=== PATIENT | male | born 1945 | race Caucasian/White ===

== ENCOUNTER 2024-07-15 16:10 | Inpatient (IN) | payer OTHER ==
[2024-07-15] MEDS ORDERED: ceFAZolin SODIUM 1 GM VIAL ONE (17:47)
[2024-07-15 17:54] LABS: BASO % 0.6 % (0-2.0); EOS % 1.6 % (0-4.5); HEMATOCRIT 35.5 % (35.4-49); HEMOGLOBIN 11.7 GM/dL (11.7-16.9); LYMPH % 12.8 % (8-40); MCH 28.2 pg (25.7-33.7); MEAN CELL VOLUME 85.6 fl (80-96); MONO % 10.3 % (3.8-10.2); NEUT % 74.7 % (42.8-82.8); PLATELET COUNT 398 10^3/uL (134-434); RBC 4.14 M/mm3 (4.00-5.60); RDW 14.5 % (11.9-15.9); WHITE BLOOD COUNT 8.1 K/mm3 (4.0-10.0)
[2024-07-15] MEDS: CEFAZOLIN 1 GM in DEXTROSE 5%-WATER - 50 ML IVPB ONE (17:57)
[2024-07-15 18:13] LABS: POTASSIUM 3.5 mmol/L (3.5-5.1)
[2024-07-15 18:14] LABS: CALCIUM 8.5 mg/dL (8.5-10.1)
[2024-07-15 18:15] LABS: ALBUMIN 2.5 g/dl (3.4-5.0); BLOOD UREA NITROGEN 12.8 mg/dL (7-18)
[2024-07-15 18:18] LABS: CREATININE 0.9 mg/dL (0.55-1.3)
[2024-07-15 18:20] LABS: BILIRUBIN,TOTAL 0.8 mg/dL (0.2-1); TOT PROT 6.3 g/dl (6.4-8.2)
[2024-07-16] MEDS ORDERED: DEXTROSE 5%-WATER 100 ML IVPB ONE (04:09)
[2024-07-16] MEDS ORDERED: CEFAZOLIN SODIUM 2 GM VIAL ONE (04:10)
[2024-07-16] MEDS ORDERED: FUROSEMIDE 40 MG/4 ML INJECTABLE VIAL ONE ×3 (04:10→19:16)
[2024-07-16] MEDS: CEFAZOLIN SODIUM 2 GM in DEXTROSE 5%-WATER 100 ML IVPB SCH (04:46)
[2024-07-16] MEDS: FUROSEMIDE 40 MG/4 ML INJECTABLE VIAL IVPUSH SCH (04:46)
[2024-07-16 07:49] LABS: HEMATOCRIT 35.1 % (35.4-49); HEMOGLOBIN 11.4 GM/dL (11.7-16.9); MCH 28.1 pg (25.7-33.7); MCHC 32.5 g/dl (32.0-35.9); MEAN CELL VOLUME 86.4 fl (80-96); PLATELET COUNT 383 10^3/uL (134-434); RBC 4.07 M/mm3 (4.00-5.60); RDW 14.1 % (11.9-15.9); WHITE BLOOD COUNT 7.1 K/mm3 (4.0-10.0)
[2024-07-16 08:13] LABS: POTASSIUM 3.7 mmol/L (3.5-5.1)
[2024-07-16 08:38] LABS: CALCIUM 8.4 mg/dL (8.5-10.1)
[2024-07-16 08:39] LABS: BLOOD UREA NITROGEN 13.4 mg/dL (7-18)
[2024-07-16 08:40] LABS: ALBUMIN 2.6 g/dl (3.4-5.0)
[2024-07-16 08:42] LABS: PHOSPHOROUS 3.1 mg/dL (2.5-4.9)
[2024-07-16 08:43] LABS: BILIRUBIN,TOTAL 0.5 mg/dL (0.2-1); TOT PROT 6.3 g/dl (6.4-8.2)
[2024-07-16] MEDS ORDERED: ENOXAPARIN NA (PORCINE) 40 MG/0.4 ML DISP.SYRIN SQ ONE (10:09)
[2024-07-16] MEDS: ENOXAPARIN NA (PORCINE) 40 MG/0.4 ML DISP.SYRIN SQ SCH (10:13)
[2024-07-16] MEDS ORDERED: CEFTRIAXONE 2 GM/100 ML BAG IVPB ONE (13:47)
[2024-07-16] MEDS: CEFTRIAXONE 2 GM in DEXTROSE 5%-WATER 100 ML IVPB SCH (14:10)
[2024-07-16] MEDS ORDERED: VANCOMYCIN/WATER 1250 MG 1,250 MG/250 ML BAG IVPB ONE (15:26)
[2024-07-16] MEDS: VANCOMYCIN/WATER 1250 MG 1,250 MG/250 ML BAG IVPB SCH (16:35)
[2024-07-16 20:42] VITALS: BMI 33.2
[2024-07-16] MEDS: ROSUVASTATIN CA 10 MG TABLET PO SCH (22:15)
[2024-07-17 12:00] LABS: BASO % 0.5 % (0-2.0); EOS % 2.4 % (0-4.5); HEMATOCRIT 32.3 % (35.4-49); LYMPH % 17.8 % (8-40); MCH 28.7 pg (25.7-33.7); MEAN CELL VOLUME 84.5 fl (80-96); MONO % 11.8 % (3.8-10.2); NEUT % 67.5 % (42.8-82.8); PLATELET COUNT 381 10^3/uL (134-434); RBC 3.83 M/mm3 (4.00-5.60); RDW 14.3 % (11.9-15.9); WHITE BLOOD COUNT 7.9 K/mm3 (4.0-10.0)
[2024-07-17 12:27] LABS: POTASSIUM 3.5 mmol/L (3.5-5.1)
[2024-07-17 12:33] LABS: CALCIUM 8.1 mg/dL (8.5-10.1)
[2024-07-17 12:34] LABS: BLOOD UREA NITROGEN 10.9 mg/dL (7-18)
[2024-07-17 12:37] LABS: CREATININE 0.9 mg/dL (0.55-1.3)
[2024-07-18 09:20] LABS: HEMATOCRIT 33.4 % (35.4-49); HEMOGLOBIN 11.2 GM/dL (11.7-16.9); MCH 28.9 pg (25.7-33.7); MCHC 33.5 g/dl (32.0-35.9); MEAN CELL VOLUME 86.2 fl (80-96); MEAN PLT VOLUME 6.9 fl (7.5-11.1); PLATELET COUNT 381 10^3/uL (134-434); RBC 3.87 M/mm3 (4.00-5.60); RDW 14.3 % (11.9-15.9); WHITE BLOOD COUNT 8.4 K/mm3 (4.0-10.0)
[2024-07-18 10:44] LABS: POTASSIUM 3.9 mmol/L (3.5-5.1)
[2024-07-18 10:45] LABS: CALCIUM 8.5 mg/dL (8.5-10.1)
[2024-07-18 10:46] LABS: BLOOD UREA NITROGEN 11.9 mg/dL (7-18); MAGNESIUM 2.1 mg/dL (1.8-2.4)
[2024-07-18 10:49] LABS: CREATININE 0.9 mg/dL (0.55-1.3); PHOSPHOROUS 3.2 mg/dL (2.5-4.9)
[2024-07-18] MEDS: FUROSEMIDE 40 MG TABLET (FP) PO SCH (14:33)
[2024-07-18] MEDS: CEFAZOLIN SODIUM 2 GM in DEXTROSE 5%-WATER 100 ML IVPB SCH (17:28)
[2024-07-19 10:02] LABS: BASO % 0.7 % (0-2.0); EOS % 3.4 % (0-4.5); HEMOGLOBIN 12.3 GM/dL (11.7-16.9); LYMPH % 21.9 % (8-40); MCHC 34.1 g/dl (32.0-35.9); MEAN CELL VOLUME 85.1 fl (80-96); MEAN PLT VOLUME 6.9 fl (7.5-11.1); MONO % 9.2 % (3.8-10.2); NEUT % 64.8 % (42.8-82.8); PLATELET COUNT 435 10^3/uL (134-434); RBC 4.23 M/mm3 (4.00-5.60); RDW 14.7 % (11.9-15.9); WHITE BLOOD COUNT 8.4 K/mm3 (4.0-10.0)
[2024-07-19 10:23] LABS: POTASSIUM 3.3 mmol/L (3.5-5.1)
[2024-07-19 10:25] LABS: BLOOD UREA NITROGEN 10.8 mg/dL (7-18); CALCIUM 8.6 mg/dL (8.5-10.1)
[2024-07-19 10:29] LABS: PHOSPHOROUS 3.2 mg/dL (2.5-4.9)
[2024-07-20 10:54] VITALS: BP 131/61; PULSE 68; RESP 20; TEMP 98.6
== END 2024-07-20 14:48 | DRG 603 ==
LOC: JER 16:10 → JERBED 20:20 → J5S 07-16 19:49
PROVIDERS: ADMIT Internal Medicine; ATTEND Internal Medicine
DX: L03.116 Cellulitis of left lower limb (principal); L03.115 Cellulitis of right lower limb; L97.818 Non-pressure chronic ulcer of other part of right lower leg with other specified severity; L97.828 Non-pressure chronic ulcer of other part of left lower leg with other specified severity; I10 Essential (primary) hypertension; E78.5 Hyperlipidemia, unspecified; I89.0 Lymphedema, not elsewhere classified; L40.9 Psoriasis, unspecified; I83.018 Varicose veins of right lower extremity with ulcer other part of lower leg; I83.028 Varicose veins of left lower extremity with ulcer other part of lower leg
CPT/HCPCS: 36415; 80048; 80053; 83735; 84100; 85025; 85027; 86140; 87040; 87070; 87081; 87186; 87205; 87635; 93970-TC; 97116-GP; 97161-GP; 99285-25